=== PATIENT | female | born 1960 | race Caucasian/White ===

== ENCOUNTER 2018-06-13 15:29 | Emergency (ER) | payer OTHER ==
[~2018-06-13] VITALS: Ht 167.6 cm; Wt 52.3 kg
[2018-06-13 15:54] VITALS: Ht 167.6 cm; Wt 52.3 kg
[2018-06-13] MEDS ORDERED: XANAX2 MG (16:03)
[2018-06-13] MEDS ORDERED: VIBRAMYCIN 100100 MG PO (17:04)
[2018-06-13] MEDS ORDERED: TORADOL10 MG PO (17:10)
[2018-06-13 17:53] VITALS: BP 134/81
== END 2018-06-13 17:54 | disposition home or self-care (01) ==
LOC: D.ER 15:29
DX: L02.416 Cutaneous abscess of left lower limb (principal); J44.9 Chronic obstructive pulmonary disease, unspecified; Z85.3 Personal history of malignant neoplasm of breast

== ENCOUNTER 2018-08-28 23:41 | Inpatient (IN) | payer OTHER ==
[~2018-08-28] VITALS: Ht 167.6 cm; Wt 50.0 kg
--- NOTE | ~2018-08-28 | CN ---
PATIENT NAME:LADONNA RODRIGUES MEDICAL RECORD: [id number] : 64 LOCATION:[id number] ADMIT DATE: 08/29/18 ACCOUNT: [id number] CONSULTING PHYSICIAN: STEPHAN HEARD MD REFERRING PHYSICIAN: FATMATA WASHINGTON DO DATE OF CONSULTATION: 08/29/2018 CARDIOLOGY CONSULTATION ADMITTING DIAGNOSES: 1. Chest pain compatible with angina. 2. Shortness of breath. 3. COPD. 4. Pneumonia. 5. Tachycardia. 6. Palpitations. HISTORY OF PRESENT ILLNESS: Ms. Rodrigues has not had a previous cardiac history. She was admitted with COPD exacerbation and pneumonia, transferred to rehabilitation. She developed acute chest pain while in rehabilitation along with tachycardia and increased shortness of breath. She was transferred to the ICU. She is quite tachycardic. Her EKG; however, has only nonspecific ST-T abnormalities. She continues to have the chest pain. Her systolic blood pressure is 80-90. Hence, no beta blockers can be used at this time. Her tachycardia is a sinus tachycardia. PHYSICAL EXAMINATION: GENERAL APPEARANCE: Well-nourished, well-developed, appears stated age. Level of distress, comfortable. PSYCHIATRIC: Mental status, alert, normal affect. Orientation, oriented to time, place and person. EYES: Lids and conjunctiva, noninjected. No discharge, no pallor. ENT: Lips, teeth, gums, normal dentition. Oropharynx, no cyanosis, no pallor. NECK: Carotid arteries, bilateral normal upstroke, no bruits, no thrills. JUGULAR VEINS: No jugular venous pressure or distention. CERVICAL LYMPH NODES: Nontender, nonenlarged. THYROID: Not enlarged. Nontender. No nodules. LUNGS: Respiratory effort, unlabored. CHEST: Normal curvature. No thoracic deformity. No chest wall tenderness. Percussion, resonant. Auscultation, clear. No wheezes, no rales, no rhonchi. CARDIOVASCULAR: Precordial exam, nondisplaced. No heaves or pericardial thrills. Rate and rhythm, regular. Heart sounds, normal S1, normal S2. No S3, no gallop, no rub. Systolic murmur, not heard. Diastolic murmur, not heard. EXTREMITIES: No cyanosis, no edema. Peripheral pulses, full and equal in all extremities, except as noted. No bruits appreciated. ABDOMEN: Soft, nondistended. Normal aorta. No bruit. Nontender. No masses. Liver, nontender, no hepatomegaly. Spleen, nontender, no splenomegaly. MUSCULOSKELETAL: No joint tenderness. No joint swelling. No erythema. NEUROLOGICAL: Normal gait, normal strength, normal tone. SKIN: Warm and dry. OVERALL IMPRESSION: Chest pain compatible with angina. Troponin is negative. There are no acute changes on EKG. She very well may have hemodynamically significant coronary artery disease. They are treating her shortness of breath as this resolves. Hopefully, her chest pain will. We very well may need to CONSULT REPORT [id number] LADONNA RODRIGUES proceed with coronary angiography. We will get an echocardiogram today and repeat troponin. TRANSINT:[id number] Voice Confirmation ID: [id number] DOCUMENT ID: [id number] STEPHAN HEARD MD at 1059 CC: [id number] DICTATION DATE: 08/29/18 1157 CLIENT INTEGRATION MANAGER: 08/29/18 1206 DIS IN 08/29/18 [id number] [place] [address]
--- NOTE | ~2018-08-28 | CN ---
PATIENT NAME:LADONNA RODRIGUES MEDICAL RECORD: [id number] : 64 LOCATION:[id number] ADMIT DATE: 08/29/18 ACCOUNT: [id number] CONSULTING PHYSICIAN: AARON CASTRO MD REFERRING PHYSICIAN: MARCO ANTONIO WASHINGTON DO DATE OF CONSULTATION: 08/29/2018 CONSULT REQUESTING PHYSICIAN: Marco Antonio Washington MD REASON FOR CONSULTATION: COPD exacerbation, positive D-dimer. HISTORY OF PRESENT ILLNESS: Ms. Rodrigues is a 57-year-old female, who was admitted last night with shortness of breath and also a lot of anxiety. The patient became more short of breath and agitated this morning. D-dimer was positive. She had a CTA, which did not show any pulmonary embolism. Now after taking the Xanax, the patient is more sleepy. The history was taken mainly by reviewing the patient's note and talking to the nursing staff. REVIEW OF SYSTEMS: As in history of present illness. PAST MEDICAL HISTORY: 1. COPD. 2. Anxiety, Xanax dependent. 3. History of CA of breast with bilateral mastectomy. 4. Cataract surgery. 5. Chronic backache. PAST SURGICAL HISTORY: 1. She had hysterectomy. 2. She had bilateral mastectomy. ALLERGIES: ALLERGIC TO MORPHINE. HOME MEDICATIONS: Viamedia is reviewed. PERSONAL AND SOCIAL HISTORY: The patient still continues to smoke. She is a nondrinker. FAMILY HISTORY: Significant for neurological diseases. PHYSICAL EXAMINATION: GENERAL: Now, the patient is lying comfortably. She is sleepy. VITAL SIGNS: The blood pressure is 110/65, pulse is 116-142, respiration is 28, temperature is 98.8, SpO2 is 91% on 4 liters nasal cannula. HEENT: Conjunctivae pink. Sclerae not icteric. NECK: Neck is supple. No JVD. CHEST: There is prolonged expiration with wheezing. HEART: Rhythm regular, normal sound, no murmur. ABDOMEN: Soft. Bowel sounds present. No hepatosplenomegaly. RECTAL: Deferred. EXTREMITIES: No cyanosis, no clubbing, no pedal edema. SKIN: The skin is warm, normal turgor. CENTRAL NERVOUS SYSTEM: The patient is now sleepy. There is no obvious cranial nerve abnormality. CONSULT REPORT [id number] LADONNA RODRIGUES LABORATORY DATA: The D-dimer is positive. CBC: WBC 4.8, hemoglobin 15.1, hematocrit 43.5, the platelet count 353. ABG: The pH is 7.40, pCO2 is 37, pO2 of 65, bicarbonate is 24. This was done on 4 liters nasal cannula. The cardiac enzymes are negative. The CTA of the chest did not show any PE. There are no acute infiltrates. There are emphysematous changes. IMPRESSION: 1. Acute hypoxic respiratory failure. 2. Acute exacerbation of chronic obstructive pulmonary disease. 3. Tracheobronchitis. 4. Emphysema on the CT scan of the chest. 5. Anxiety, Xanax dependent. 6. Positive D-dimer, rule out PTE. RECOMMENDATION: 1. Continue empiric doxycycline and ceftriaxone. 2. Methylprednisolone IV. 3. I will discontinue the Advair inhaler, start on Brovana and budesonide nebulizer. 4. Continue albuterol/ipratropium nebulizer. 5. Follow up labs and chest radiograph. Check the alpha [address] Washington, thank you for involving me in care of Filippo. TRANSINT:[id number] Voice Confirmation ID: [id number] DOCUMENT ID: [id number] AARON CASTRO MD at 1234 CC: [id number] DICTATION DATE: 08/29/18 1419 MACHINE ENGRAVER: 08/29/18 1500 DIS IN 08/29/18 [facility] [address] [place] [address]
--- NOTE | ~2018-08-28 | EC ---
PATIENT:LADONNA BRADY DATE OF SERVICE: 08/29/18 SEX: F MEDICAL RECORD: [id number] DATE OF : 64 LOCATION:D.[facility] D.230 AGE OF PATIENT: 57 ADMISSION DATE: 08/29/18 REFERRING PHYSICIAN: INTERPRETING PHYSICIAN: STEPHAN GAMBINO MD ECHOCARDIOGRAM REPORT ECHO CHARGES 4 ECHO COMPLETE Date: 08/29/18 CLINICAL DIAGNOSIS: CP - S/P RAPID RESPONSE ECHOCARDIOGRAPHIC MEASUREMENTS (adult normal given) AC root (d.<3.7cm) 2.7 cm LV Septum d (<1.2 cm> 0.9 cm Valve Excursion 1.7 cm LV Septum (systole) 1.2 cm Left Atria (s.<4.0cm> 2.3 cm LVPW d(<1.2cm) 0.8 cm RV (d.<2.3cm) 2.1 cm LVPW (sytole) 1.2 cm LV diastole(<5.6CM) 4.8 cm MV E-F(>70mm/sec) cm LV systole 3.3 cm LVOT Diameter 1.7 cm MV exc.(>10mm) cm Est.ejection fraction (50-75%) % DOPPLER: LVIT cm/sec A 94.0 cm/sec E 83.0 cm/sec LA cm/sec RVSP 20.3 mmHg LVOT 95.0 cm/sec AOP1/2T m/s Asc. Ao 128 cm/sec RVOT 69.0 cm/sec RA cm/sec PA 103 cm/sec AV Gradient Peak 6.6 mmHg AV Mean 3.2 mmHg AV Area 1.5 cm MV Gradient Peak 4.7 mmHg MV Mean 1.8 mmHg MV Area cm COMMENTS: Interface Engineer: Ty GRIMMOE Manual Equipment Mechanic: 1 Dr. Gambino TAPE# PACS Pericardial Effusion N DATE OF SERVICE: PROCEDURE: Echocardiogram. FINDINGS: 1. Left ventricular chamber size is within normal limits. Left ventricular systolic function is mildly depressed. Overall ejection fraction 40% to 45%. 2. Left atrium, right atrium, and right ventricle chamber sizes are within normal limits. 3. Valvular structures have normal structure and motion. ECHOCARDIOGRAM REPORT [id number] LADONNA BRADY 4. Doppler interrogation reveals trace tricuspid regurgitation, no other valvular insufficiency or stenosis. Pulmonary systolic pressure is normal, estimated at 20 mmHg. 5. No evidence of pericardial effusion or left ventricular thrombus. TRANSINT:[id number] Voice Confirmation ID: [id number] DOCUMENT ID: [id number] STEPHAN GAMBINO MD at 1059 CC: FATMATA WASHINGTON DO [id number] DICTATION DATE: 08/30/18 1249 NURSE SPECIALIST: 08/30/18 1319 DIS IN 08/29/18 [place] [id number]
[2018-08-28 23:41] VITALS: BP 112/72
[~2018-08-28 23:41] MED LIST: TORADOL10 MG PO; VIBRAMYCIN 100100 MG PO; XANAX2 MG PO
[2018-08-28] MEDS ORDERED: ZOFRAN8 MG PO (23:56)
[2018-08-29] VITALS (18 sets, daily range): BP systolic 81–156; BP diastolic 56–88; Ht 167.6 cm; Wt 50.0 kg
[2018-08-29 00:13] LABS: HEMATOCRIT 43.5 % (36.0-48.0); HEMOGLOBIN 15.1 g/dL (12-16); LYMPHOCYTES 31.6 % (15-50); MCH 30.6 pg (26.0-34.0); MCHC 34.7 g/dL (31.0-37.0); MCV 88.2 fL (80.0-100.0); MEAN PLATELET VOLUME 8.9 fL (7.4-10.4); NEUTROPHILS 61.9 % (40-80); PLATELET COUNT 353 10x3/uL (130-400); RBC 4.93 10x6/uL (4.00-5.40); WBC 5.8 10x3/uL (4.8-10.8)
[2018-08-29 00:22] LABS: ALBUMIN 3.4 g/dL (3.4-5.0); ANION GAP 14.4 mmol/L (8-16); BILIRUBIN - TOTAL 0.3 mg/dL (0.2-1.3); CALCIUM 9.2 mg/dL (8.5-10.1); CARBON DIOXIDE 25.6 mmol/L (21.0-32.0); PROTEIN - SERUM 8.6 g/dL (6.4-8.2)
[2018-08-29] MEDS ORDERED: SYMBICORT 16010.2 GM INH (02:52)
[2018-08-29] MEDS ORDERED: VENTOLIN HFA18 GM INH (02:53)
[2018-08-29] MEDS ORDERED: ACETAMINOPHEN500 M1 PO (02:54)
[2018-08-29 09:11] LABS: CKMB 0.5 U/L (0.0-3.6); CREATINE KINASE 32 UL (21-215); TROPONIN-I < 0.017 ng/mL (0.000-0.060)
[2018-08-29 15:12] LABS: CKMB 0.5 U/L (0.0-3.6); CREATINE KINASE 37 UL (21-215); TROPONIN-I < 0.017 ng/mL (0.000-0.060)
== END 2018-08-29 19:35 | disposition left against medical advice (07) | DRG 192 ==
LOC: D.ER 23:41 → D.M3 08-29 01:46 → D.ICU 08-29 08:51
PROVIDERS: Emergency Medicine; Family Medicine
DX: J43.9 Emphysema, unspecified (principal); F41.9 Anxiety disorder, unspecified; J40 Bronchitis, not specified as acute or chronic; F17.200 Nicotine dependence, unspecified, uncomplicated; Z90.13 Acquired absence of bilateral breasts and nipples; Z85.3 Personal history of malignant neoplasm of breast; I20.9 Angina pectoris, unspecified